=== PATIENT | male | born 1995 | race Hispanic/Latino ===

== ENCOUNTER 2018-04-20 10:47 | Emergency (ER) | payer OTHER ==
[2018-04-20] MEDS ORDERED: LIDOCAINE HCL-MPF 1% 2ML VIAL ONE (11:08)
[2018-04-20] MEDS ORDERED: AZITHROMYCIN 250 MG TABLET PO ONE (11:08)
[2018-04-20] MEDS ORDERED: CEFTRIAXONE SODIUM 500 MG VIAL ONE (11:08)
[2018-04-20 11:19] LABS: APPEARANCE,URINE Turbid (CLEAR); BILIRUBIN,URINE Negative (NEGATIVE); COLOR,URINE Yellow (YELLOW); GLUCOSE, URINE (UA) Negative (NEGATIVE); KETONES,URINE Negative (NEGATIVE); LEUKOCYTE ESTERASE ,URINE Large (NEGATIVE); NITRATE,URINE Negative (NEGATIVE); OCCULT BLOOD,URINE Negative (NEGATIVE); PROTEIN,URINE Negative (NEGATIVE)
[2018-04-20 12:09] LABS: AMORPHOUS SEDIMENT,UR Moderate /LPF (None Seen); BACTERIA,URINE Moderate /HPF (None Seen); RBC,URINE None Seen /HPF (0-1); SQUAMOUS EPITHELIAL CELL,UR Rare /HPF (0-2); WBC,URINE 51-100 /HPF (0-1)
== END 2018-04-20 12:31 | disposition home or self-care (01) ==
LOC: EDH 10:47
DX: A54.01 Gonococcal cystitis and urethritis, unspecified (principal); Z72.0 Tobacco use
CPT/HCPCS: 81001; 87486; 87797; 96372; 99284; J0696; J3490

== ENCOUNTER 2019-06-05 14:25 | Emergency (ER) | payer SELFPAY ==
[2019-06-05] MEDS ORDERED: AMOXICILLIN 500 MG CAPSULE PO ONE (15:39)
== END 2019-06-05 16:41 | disposition home or self-care (01) ==
LOC: EDH 14:25
DX: K04.7 Periapical abscess without sinus (principal)

== ENCOUNTER 2021-04-28 15:08 | Emergency (ER) | payer OTHER ==
[~2021-04-28] VITALS: Ht 175.3 cm; Wt 113.4 kg
[2021-04-28 15:09] VITALS: BP 123/74
[2021-04-28] MEDS ORDERED: OSELTAMIVIR PHOSPHATE 75 MG CAP ONE (17:35)
[2021-04-28] MEDS ORDERED: IBUPROFEN 600 MG TABLET PO ONE (18:30)
[2021-04-28] MEDS ORDERED: GUAIFENESIN-DM 200/20 MG 10 ML PO ONE (18:30)
[2021-04-28] MEDS ORDERED: OSELTAMIVIR PHOSPHATE 75 MG CAP PO SCH (18:30)
[2021-04-28] MEDS ORDERED: GUAI5SYR PO (19:07)
[2021-04-28] MEDS ORDERED: OSEL75 PO (19:07)
[2021-04-28] MEDS ORDERED: IBUP-2070 PO (19:07)
== END 2021-04-28 19:15 | disposition home or self-care (01) ==
LOC: EDH 15:08
DX: J10.1 Influenza due to other identified influenza virus with other respiratory manifestations (principal); Z20.822 Contact with and (suspected) exposure to COVID-19
CPT/HCPCS: 87635; 87804 ×2; 87880; 99284; C9803

== ENCOUNTER 2023-06-19 10:38 | Emergency (ER) | payer OTHER ==
[~2023-06-19] VITALS: Ht 175.3 cm; Wt 113.4 kg
[~2023-06-19 10:38] MED LIST: DOXY100C5 PO; GUAI5SYR PO; IBUP-2070 PO; OSEL75 PO
[2023-06-19] MEDS ORDERED: IBUP-2077 PO (11:46)
[2023-06-19] MEDS ORDERED: AMOX1TAB16 PO (11:46)
[2023-06-19] MEDS ORDERED: KETOROLAC 30MG VIAL (30MG/ML) IM ONE (12:00)
[2023-06-19 14:07] VITALS: BP 118/72; PULSE 69; RESP 19; O2SAT 100
== END 2023-06-19 14:11 | disposition home or self-care (01) ==
LOC: EDH 10:38
DX: S02.5XXA Fracture of tooth (traumatic), initial encounter for closed fracture (principal); K02.9 Dental caries, unspecified; Z79.899 Other long term (current) drug therapy; X58.XXXA Exposure to other specified factors, initial encounter; Y93.89 Activity, other specified; Y92.89 Other specified places as the place of occurrence of the external cause; Y99.8 Other external cause status
CPT/HCPCS: 99283; 96372; J1885